=== PATIENT | female | born 1970 | race Caucasian/White ===

== ENCOUNTER 2022-04-21 09:02 | Emergency (ER) | payer OTHER ==
[~2022-04-21] VITALS: Ht 160 cm; Wt 62.7 kg
[2022-04-21 09:10] VITALS: BP 124/58
--- NOTE | 2022-04-21 09:22 | NUR ---
WALKED IN C/O VAGINAL BLEED. DENIES BACK PAIN OR FEVER. STATES HX ACTIVE UTI AND VAGINAL ULCER. UNK CAUSE. DENIES TRAUMA. DENIES . URINE COLLECTED. AAOX4, AMBULATORY. NKA HX: THYROID PROBLEM
--- NOTE | 2022-04-21 10:02 | NUR ---
DR GOOD AT BEDSIDE WITH FEMALE SHEARER HELPER GARCIA FOR PELVIC EXAM
--- NOTE | 2022-04-21 10:09 | NUR ---
WET MOUND SWAB COLLECTED
[2022-04-21 11:21] LABS: APPEARANCE,URINE CLEAR (CLEAR); BILIRUBIN,URINE NEGATIVE (NEGATIVE); BLOOD, URINE TRACE-I (NEGATIVE); COLOR,URINE YELLOW (YELLOW); LEUKOCYTE ESTERASE ,URINE 1+ (NEGATIVE); NITRITE, URINE NEGATIVE (NEGATIVE); PH,URINE 6.5 (5.0-9.0); UGLUCOSE NEGATIVE (NEGATIVE)
[2022-04-21 12:04] LABS: RBC,URINE 0-5 /HPF (0-5); WBC,URINE 0-5 /HPF (0-5)
[2022-04-21 12:25] VITALS: BP 122/65
--- NOTE | 2022-04-21 12:25 | NUR ---
Patient discharged with v/s stable. Written and verbal after care instructions given and explained. Patient verbalized understanding. Ambulatory with steady gait. All questions addressed prior to discharge. Advised to follow up with PMD.
== END 2022-04-21 12:25 | disposition home or self-care (01) ==
LOC: MED 09:02
DX: N94.9 Unspecified condition associated with female genital organs and menstrual cycle (principal); E07.9 Disorder of thyroid, unspecified
CPT/HCPCS: 81001; 81025; 87086; 87210; 99283

== ENCOUNTER 2022-11-23 11:00 | Emergency (ER) | payer OTHER ==
[~2022-11-23] VITALS: Ht 160 cm; Wt 62.6 kg
[2022-11-23 11:26] VITALS: BP 134/70
[2022-11-23] MEDS ORDERED: SYN.1 PO (11:31)
--- NOTE | 2022-11-23 11:33 | NUR ---
FACIAL SWELLING AND PAIN X 3 DAYS, ON 2ND DAY OF AUGMENTIN.
[2022-11-23] MEDS ORDERED: KETOROLAC 30 MG/ML VIAL IM ONE (12:25)
[2022-11-23 13:54] LABS: BASOPHILS % (AUTO) 0.2 % (0.0-2.0); EOSINOPHILS % (AUTO) 0.1 % (0.0-4.0); HEMOGLOBIN 13.3 g/dL (12.0-16.0); LYMPHOCYTES # (AUTO) 1.1 K/uL (2.5-16.5); LYMPHOCYTES % (AUTO) 11.8 % (20.5-51.1); MEAN CORPUSCULAR HEMOGLOBIN 32 pg (27-31); MEAN CORPUSCULAR HGB CONC 34 g/dL (33-37); MEAN CORPUSCULAR VOLUME 93.5 fL (80-94); MONOCYTES # (AUTO) 0.4 K/uL (0.8-1.0); MONOCYTES % (AUTO) 4.7 % (1.7-9.3); NEUTROPHILS # (AUTO) 7.7 K/uL (1.8-7.7); NEUTROPHILS % (AUTO) 83.2 % (42.2-75.2); PLATELET COUNT (AUTO) 244 K/uL (140-450); RED BLOOD CELL COUNT(AUTO) 4.17 MIL/uL (4.20-5.40); RED CELL DISTRIBUTION WIDTH 12.6 % (11.6-13.7); WHITE BLOOD COUNT (AUTO) 9.3 K/uL (4.8-10.8)
[2022-11-23 14:17] LABS: ALBUMIN 4.2 g/dL (3.4-5.0); ANION GAP 11.2 (8-16); CARBON DIOXIDE 27.5 mmol/L (21-32); CREATININE 0.5 mg/dL (0.6-1.3); POTASSIUM 3.7 mmol/L (3.5-5.1); TOTAL BILIRUBIN 0.6 mg/dL (0.0-1.0)
[2022-11-23] MEDS ORDERED: KETOROLAC 30 MG/ML VIAL IVP ONE (17:20)
[2022-11-23 17:45] VITALS: BP 111/60
== END 2022-11-23 17:46 | disposition home or self-care (01) ==
LOC: MED 11:00
DX: K04.7 Periapical abscess without sinus (principal); E87.1 Hypo-osmolality and hyponatremia; E03.9 Hypothyroidism, unspecified; Z79.899 Other long term (current) drug therapy
CPT/HCPCS: 36415; 70487; 80053; 85025; 96374; 99285; J1885; Q9967

== ENCOUNTER 2022-11-26 18:05 | Inpatient (IN) | payer OTHER ==
[~2022-11-26] VITALS: Ht 160 cm; Wt 60.8 kg
[~2022-11-26 18:05] MED LIST: SYN.1 PO
[2022-11-26 18:19] VITALS: BP 115/73
--- NOTE | 2022-11-26 18:36 | NUR ---
PT AMB TO BED 2.
--- NOTE | 2022-11-26 19:39 | NUR ---
PATIENT STABLE VITALS SIGNS IN NORMAL LIMITS NOT COMPLAINING OF PAIN AT THIS TIME
[2022-11-26] MEDS ORDERED: KETOROLAC 30 MG/ML VIAL IVP ONE (20:10)
[2022-11-26] MEDS ORDERED: PIPERACILLIN/TAZOBACTAM 3.375 GM in DEXTROSE 5% 50 ML IV ONE (20:10)
[2022-11-26] MEDS ORDERED: PIPERACILLIN/TAZOBACTAM 3.375 GM VIAL IV ONE (20:17)
[2022-11-26 20:56] LABS: BASOPHILS % (AUTO) 0.3 % (0.0-2.0); EOSINOPHILS # (AUTO) 0.1 K/uL (0-0.4); EOSINOPHILS % (AUTO) 0.8 % (0.0-4.0); HEMATOCRIT 40.2 % (36-48); HEMOGLOBIN 13.8 g/dL (12.0-16.0); LYMPHOCYTES # (AUTO) 1.4 K/uL (2.5-16.5); LYMPHOCYTES % (AUTO) 20.7 % (20.5-51.1); MEAN CORPUSCULAR HEMOGLOBIN 32 pg (27-31); MEAN CORPUSCULAR HGB CONC 34 g/dL (33-37); MEAN CORPUSCULAR VOLUME 92.9 fL (80-94); MONOCYTES # (AUTO) 0.3 K/uL (0.8-1.0); MONOCYTES % (AUTO) 4.2 % (1.7-9.3); NEUTROPHILS # (AUTO) 4.8 K/uL (1.8-7.7); PLATELET COUNT (AUTO) 303 K/uL (140-450); RED BLOOD CELL COUNT(AUTO) 4.33 MIL/uL (4.20-5.40); RED CELL DISTRIBUTION WIDTH 12.7 % (11.6-13.7); WHITE BLOOD COUNT (AUTO) 6.5 K/uL (4.8-10.8)
[2022-11-26 21:17] LABS: ANION GAP 13.5 (8-16); CARBON DIOXIDE 27.4 mmol/L (21-32); CREATININE 0.6 mg/dL (0.6-1.3); POTASSIUM 3.9 mmol/L (3.5-5.1)
[2022-11-26 21:32] LABS: ALBUMIN 3.8 g/dL (3.4-5.0); TOTAL BILIRUBIN 0.3 mg/dL (0.0-1.0)
--- NOTE | 2022-11-26 21:42 | NUR ---
COVID SWAB COLLECTED AND GIVEN TO MAI FROM LAB.
[2022-11-26] MEDS ORDERED: LORazepam 2 MG/ML VIAL IVP PRN (23:30)
[2022-11-26] MEDS ORDERED: ACETAMINOPHEN 325 MG TAB PO PRN (23:30)
[2022-11-26] MEDS: NACL 0.9% 1,000 ML IV SCH (23:34)
[2022-11-27] MEDS ORDERED: AMPICILLIN/SULBACTAM 1.5 GM VIAL ONE ×3 (00:52→05:11)
[2022-11-27] MEDS: AMPICILLIN/SULBACTAM 1.5 GM in NACL 0.9% 50 ML IV SCH ×5 (00:54→23:34)
--- NOTE | 2022-11-27 00:57 | NUR ---
PATIENT AMITED TO 120 A STABLE VITALS SIGNS IN NORMAL LIMITS NOT COMPLAINING OF PAIN REPOT AND ENDORSE CARE TO MARY PAZ
[2022-11-27 04:33] VITALS: BP 121/56
[2022-11-27] MEDS: NACL 0.9% 1,000 ML IV SCH ×3 (05:20→23:32)
--- NOTE | 2022-11-27 05:45 | NUR ---
rn notes patient remains on room air, no sob noted, VSS all shift. Patient denies pain at this time. Receiving IV abx at this time, running NS IVF.
[2022-11-27 06:35] LABS: ALBUMIN 2.9 g/dL (3.4-5.0); ANION GAP 11.4 (8-16); CARBON DIOXIDE 25.8 mmol/L (21-32); CREATININE 0.5 mg/dL (0.6-1.3); POTASSIUM 3.2 mmol/L (3.5-5.1); TOTAL BILIRUBIN 0.3 mg/dL (0.0-1.0)
[2022-11-27 06:57] LABS: BASOPHILS % (AUTO) 0.9 % (0.0-2.0); EOSINOPHILS # (AUTO) 0.1 K/uL (0-0.4); HEMATOCRIT 35.2 % (36-48); HEMOGLOBIN 11.9 g/dL (12.0-16.0); LYMPHOCYTES # (AUTO) 1.5 K/uL (2.5-16.5); LYMPHOCYTES % (AUTO) 29.6 % (20.5-51.1); MEAN CORPUSCULAR HEMOGLOBIN 32 pg (27-31); MEAN CORPUSCULAR HGB CONC 34 g/dL (33-37); MONOCYTES # (AUTO) 0.3 K/uL (0.8-1.0); MONOCYTES % (AUTO) 5.7 % (1.7-9.3); NEUTROPHILS # (AUTO) 3.1 K/uL (1.8-7.7); NEUTROPHILS % (AUTO) 61.8 % (42.2-75.2); PLATELET COUNT (AUTO) 269 K/uL (140-450); RED BLOOD CELL COUNT(AUTO) 3.79 MIL/uL (4.20-5.40); RED CELL DISTRIBUTION WIDTH 12.8 % (11.6-13.7)
[2022-11-27 08:00] VITALS: BP 109/65
[2022-11-27] MEDS ORDERED: POTASSIUM CHLORIDE 10 MEQ TABER PO SCH (09:30)
--- NOTE | 2022-11-27 09:32 | NUR ---
PATIENT HAS BEEN SCREENED AND CATEGORIZED LOW NUTRITION RISK. PATIENT WILL BE SEEN WITHIN 7 DAYS OF ADMISSION. 11/26/22-12/03/[address]
[2022-11-27] MEDS ORDERED: MAGNESIUM OXIDE 400 MG TAB PO PRN (09:50)
[2022-11-27] MEDS ORDERED: MAG SULF 2000 MG/WATER PREMIX 50 ML IV PRN (09:50)
[2022-11-27] MEDS ORDERED: KCL 20 MEQ IN 100 mL PREMIX 200 ML IV PRN (09:50)
[2022-11-27] MEDS ORDERED: POTASSIUM CHLORIDE 10 MEQ TABER PO PRN (09:50)
--- NOTE | 2022-11-27 19:30 | NUR ---
ENDORSE PATIENT IN STABLE CONDITION TO PM SHIFT NURSE WHILE PIV NS INFUSING VIA L.WRIST 20G IV SITE @125ML/HR. PATIENT ON ROOM AIR
[2022-11-27 20:00] VITALS: BP 124/62
--- NOTE | 2022-11-27 23:49 | NUR ---
PATIENT STABLE VITALS SIGNS IN NORMAL LIMITS NOT COMPLAINING OF PAIN AT THIS TIME
[2022-11-28] MEDS: MORPHINE SULFATE 2 MG/ML SYR IVP PRN ×2 (00:33→05:44)
[2022-11-28] MEDS: ONDANSETRON 4 MG/2 ML VIAL IVP PRN ×2 (00:33→05:44)
[2022-11-28 04:00] VITALS: BP 126/62
[2022-11-28] MEDS: AMPICILLIN/SULBACTAM 1.5 GM in NACL 0.9% 50 ML IV SCH ×4 (06:00→12:06)
[2022-11-28] MEDS ORDERED: LEVOTHYROXINE 0.1 MG TAB PO SCH (06:30)
--- NOTE | 2022-11-28 06:58 | NUR ---
PATIENT STABLE VITALS SIGNS IN NORMAL LIMITS COMPLAINING OF PAIN I JUST GAVE MORPHINE AND ZOFRAN
[2022-11-28] MEDS: NACL 0.9% 1,000 ML IV SCH (07:04)
[2022-11-28 08:00] VITALS: BP 114/62
[2022-11-28] MEDS ORDERED: HYDROcodone/APAP 5/325 MG 1 TAB TAB PO PRN (12:25)
[2022-11-28] MEDS ORDERED: ACET-8905 PO (12:26)
[2022-11-28] MEDS ORDERED: AMOX-1230 PO (12:26)
[2022-11-28] MEDS ORDERED: metroNIDAZOLE 500 MG TAB PO SCH (13:00)
[2022-11-28 13:23] VITALS: BP 114/62
--- NOTE | 2022-11-28 14:08 | NUR ---
DISCHARGE PATIENT IN STABLE CONDITION PER PCP ORDER. DISCHARGE INSTRUCTION GIVE WITH SISTER PRESENT, DISCHARGE CONSENT SIGNED, IV ACCESS & WRIST BAND REMOVED PRIOR WHEEL PATIENT OUT THE FACILITY. PATIENT & HER SISTER AWARE THAT PATIENT NEED FOLLOW UP WITH HER DENTIST XOCHITL.
--- NOTE | 2022-12-01 12:25 | NUR ---
CALLED [facility] LOCATED AT [address] [facility] [id number]. SPOKE WITH ELSA WHO INFORMED ME THAT THEY TIRED TO REACH OUT TO PT MULTIPLE TIMES TO MAKE FOLLOW UP APPOINTMENT BUT THEY COULDN'T GET A HOLD OF HER. NOW SHE HAS TO CALL THEM TO MAKE APPOINTMENT HERSELF DUE TO HER NOT BEING RESPONSIVE.
== END 2022-11-28 14:15 | disposition home or self-care (01) | DRG 383 ==
LOC: MED 18:05 → MMU 23:31 → MTU 11-27 01:05
PROVIDERS: ADMIT Hospitalist; ATTEND Hospitalist
DX: L03.211 Cellulitis of face (principal); E03.9 Hypothyroidism, unspecified; E87.6 Hypokalemia; Z20.822 Contact with and (suspected) exposure to COVID-19
CPT/HCPCS: 36415; 70486; 80053; 83605; 83735; 85025; 87040; 87081; 96374; 96375; 99285; J0295; J1885; J2270; J2405; J2543